=== PATIENT | female | born 1940 | race Caucasian/White ===

== ENCOUNTER 2020-03-28 13:29 | Outpatient (CLI) | payer MEDICARE, OTHER ==
--- NOTE | 2020-03-28 16:04 | MMO ---
Bilateral MAMMO Bilat Screen [facility]. CLINICAL HISTORY: Patient is 80 years old and is seen for screening. The patient has no family history of breast cancer. The patient has a history of malignant (generic) in the right breast at age 69. The patient has a history of right Lumpectomy at age 69 and right Excisional Biopsy at age 23 - benign. VIEWS: The views performed were: bilateral craniocaudal with tomosynthesis and bilateral mediolateral oblique with tomosynthesis. FILMS COMPARED: The present examination has been compared to prior imaging studies performed at [facility] on 05/29/2017 and 05/31/2018, and at [facility] on 03/03/2016. This study has been interpreted with the assistance of computer-aided detection. MAMMOGRAM FINDINGS: There are scattered fibroglandular densities. Finding 1: There are stable benign appearing calcifications seen in both breasts. Finding 2: There are stable benign appearing densities seen in both breasts. There are no suspicious masses, suspicious calcifications, or new areas of architectural distortion. IMPRESSION: THERE IS NO MAMMOGRAPHIC EVIDENCE OF MALIGNANCY. A ROUTINE FOLLOW-UP MAMMOGRAM IN 1 YEAR IS RECOMMENDED. THE RESULTS OF THIS EXAM WERE SENT TO THE PATIENT. ACR BI-RADS Category 2 - Benign finding MAMMOGRAPHY NOTE: 1. A negative mammogram report should not delay a biopsy if a dominant of clinically suspicious mass is present. 2. Approximately 10% to 15% of breast cancers are not detected by mammography. 3. Adenosis and dense breasts may obscure an underlying neoplasm. Reported by: DHARA EDWARDS MD Electonically Signed: [id number]
== END 2020-03-28 13:30 | disposition home or self-care (01) ==
LOC: BICMAMMO 13:29
PROVIDERS: ATTEND Physician Assistant Medical
DX: Z12.31 Encounter for screening mammogram for malignant neoplasm of breast (principal); Z85.3 Personal history of malignant neoplasm of breast; Z91.89 Other specified personal risk factors, not elsewhere classified; Z98.890 Other specified postprocedural states
CPT/HCPCS: 77063; 77067

== ENCOUNTER 2021-07-04 09:36 | Outpatient (CLI) | payer MEDICARE, OTHER | END 2021-07-04 09:37 | disposition home or self-care (01) | LOC: BICMAMMO 09:36 | PROVIDERS: ATTEND Family Medicine | DX: R92.8 Other abnormal and inconclusive findings on diagnostic imaging of breast (principal) | CPT/HCPCS: 76642; 77065; G0279 ==

== ENCOUNTER 2022-07-30 14:24 | Outpatient (CLI) | payer MEDICARE, OTHER | END 2022-07-30 14:25 | disposition home or self-care (01) | LOC: BICMAMMO 14:24 | PROVIDERS: ATTEND Family Medicine | DX: Z12.31 Encounter for screening mammogram for malignant neoplasm of breast (principal); Z85.3 Personal history of malignant neoplasm of breast; Z98.890 Other specified postprocedural states; Z91.89 Other specified personal risk factors, not elsewhere classified | CPT/HCPCS: 77063; 77067 ==

== ENCOUNTER 2022-10-01 07:58 | Outpatient (CLI) | payer MEDICARE, OTHER | END 2022-10-01 07:59 | disposition home or self-care (01) | LOC: BICMRI 07:58 | PROVIDERS: ATTEND Anesthesiology Pain Medicine | DX: M48.02 Spinal stenosis, cervical region (principal); M47.812 Spondylosis without myelopathy or radiculopathy, cervical region; M47.813 Spondylosis without myelopathy or radiculopathy, cervicothoracic region | CPT/HCPCS: 72141 ==